=== PATIENT | male | born 1975 | race Hispanic/Latino ===

== ENCOUNTER 2020-02-13 14:55 | Emergency (ER) | payer OTHER, SELFPAY ==
[2020-02-13] MEDS ORDERED: Ondansetron ODT 4 MG TAB ONE (15:27)
[2020-02-13] MEDS ORDERED: Ketorolac Tromethamine 30 MG/ML VIAL ONE (15:28)
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
[2020-02-13 16:12] LABS: #Eosinphils 0.1 thou/uL (0.0-0.7); #Lymphocytes 1.3 thou/uL (1.20-3.40); #Monocytes 0.6 thou/uL (0.11-0.59); %Basophils 0.4 % (0.0-1.0); %Eosinophils 2.2 % (0.0-10.0); %Lymphocytes 25.4 % (21.0-51.0); %Monocytes 12.5 % (0.0-10.0); %Neutrophils 59.4 % (42.0-75.0); Hemoglobin 15.5 g/dL (14.0-18.0); Mean Corpuscular HGB CONC 35.6 g/dL (32.0-36.0); Mean Corpuscular Hemoglobin 32.3 pg (27.0-31.0); Mean Corpuscular Volume 90.6 fL (78.0-98.0); Mean Platelet Volume 7.8 fL (7.4-10.4); Platelet Count 218 thou/uL (130-400); RBC Distribution Width 11.2 % (11.5-14.5); Red Blood Cell (RBC) Count 4.79 mill/uL (4.70-6.10); White Blood Cell (WBC) Count 5.1 thou/uL (4.8-10.8)
[2020-02-13 16:31] LABS: ALT (SGPT) 240 U/L (8-55); AST (SGOT) 301 U/L (5-34); Albumin 4.5 g/dL (3.5-5.0); Alkaline Phosphatase 125 U/L (40-110); Anion Gap 11 mmol/L (10-20); BUN (Urea Nitrogen) 18 mg/dL (8.9-20.6); CRP (Inflammatory) 2.03 mg/dL (= or < 0.5); Calc. Creatinine Clearance 0 mL/min (70-130); Calcium 8.9 mg/dL (7.8-10.44); Carbon Dioxide 28 mmol/L (22-29); Chloride 100 mmol/L (98-107); Estimated GFR-MDRD 90; Globulin 3.3 g/dL (2.4-3.5); Glucose 85 mg/dL (70-105); Protein, Total 7.8 g/dL (6.0-8.3); Sodium 135 mmol/L (136-145)
[2020-02-13] MEDS ORDERED: Morphine 4 MG/ML VIAL ONE (17:10)
--- NOTE | 2020-02-13 18:26 | ULT ---
EXAM: US Gallbladder RUQ CLINICAL HISTORY: Nausea. Vomiting. Epigastric pain.. COMPARISON: 11/28/2012 FINDINGS: Pancreas: Obscured by bowel gas Liver:Heterogeneous echotexture liver which may be due to hepatic steatosis or hepatocellular disease . Subsequent limited evaluation for hepatic masses and intrahepatic biliary dilatation Right hepatic lobe: 17.2 cm Gallbladder: No sonographic evidence of cholelithiasis, gallbladder wall thickening or pericholecysti c fluid. Martinez's sign:Negative Portal Vein: Patent. Appropriate directional flow Bile ducts: 0.4 cm common bile duct diameter Right kidney: No hydronephrosis. Possible cystic structure with septations in the right renal cortex measuring 2.1 x 2.0 x 1.8 cm. Right kidney measures 7.0 x 6.0 x 9.7 cm in length. IMPRESSION: 1. No sonographic evidence of cholelithiasis or cholecystitis 2. Mild hepatomegaly with heterogeneous hepatic parenchymal echotexture as described above.
== END 2020-02-13 19:38 | disposition home or self-care (01) ==
LOC: ERS 14:55
DX: M25.462 Effusion, left knee (principal); R10.84 Generalized abdominal pain; R94.5 Abnormal results of liver function studies; I10 Essential (primary) hypertension; K21.9 Gastro-esophageal reflux disease without esophagitis; F17.210 Nicotine dependence, cigarettes, uncomplicated
CPT/HCPCS: 36415; 76705; 80053; 83690; 85025; 85652; 86140; 93005; 96372; J1885; J2270; Q0162

== ENCOUNTER 2024-05-01 12:22 | Emergency (ER) | payer BC, OTHER, SELFPAY ==
[2024-05-01] MEDS ORDERED: Ketorolac Tromethamine 30 MG (1 mL) VIAL ONE (12:57)
[2024-05-01] MEDS ORDERED: HYDROcodone/Acetaminophen 7.5/325 mg Tablet ONE (12:58)
== END 2024-05-01 13:21 | disposition home or self-care (01) ==
LOC: ERS 12:22
DX: K08.89 Other specified disorders of teeth and supporting structures (principal); R22.0 Localized swelling, mass and lump, head; I10 Essential (primary) hypertension; F17.210 Nicotine dependence, cigarettes, uncomplicated
CPT/HCPCS: 96372; 99282; J1885

== ENCOUNTER 2024-07-10 14:11 | Emergency (ER) | payer OTHER ==
[2024-07-10] MEDS ORDERED: Ketorolac Tromethamine 30 MG (1 mL) VIAL ONE (17:11)
[2024-07-10] MEDS ORDERED: Cyclobenzaprine 10 MG TAB ONE (17:11)
[2024-07-10] MEDS ORDERED: HYDROcodone/Acetaminophen 5/325 mg Tablet ONE (17:12)
== END 2024-07-10 17:48 | disposition home or self-care (01) ==
LOC: ERS 14:11
DX: M25.562 Pain in left knee (principal); I10 Essential (primary) hypertension; F17.210 Nicotine dependence, cigarettes, uncomplicated
CPT/HCPCS: 96372; 99283; J1885

== ENCOUNTER 2025-05-04 22:06 | Emergency (ER) | payer OTHER ==
[2025-05-04] MEDS ORDERED: HYDROcodone/Acetaminophen 5/325 mg Tablet ONE (23:23)
== END 2025-05-05 01:34 | disposition home or self-care (01) ==
LOC: ERS 22:06
DX: G89.29 Other chronic pain (principal); M25.562 Pain in left knee; M25.572 Pain in left ankle and joints of left foot; I10 Essential (primary) hypertension; F17.210 Nicotine dependence, cigarettes, uncomplicated
CPT/HCPCS: 99283